=== PATIENT | male | born 1965 | race Caucasian/White ===

== ENCOUNTER → 2018-03-28 | Outpatient (CLI) | payer BC | END | disposition home or self-care (01) | LOC: LAB 16:20 | DX: E11.9 Type 2 diabetes mellitus without complications (principal) ==

== ENCOUNTER → 2019-03-17 | Outpatient (CLI) | payer BC | END | disposition home or self-care (01) | LOC: LAB 09:51 | DX: E11.9 Type 2 diabetes mellitus without complications (principal); R53.83 Other fatigue; R79.89 Other specified abnormal findings of blood chemistry ==

== ENCOUNTER → 2020-03-19 | Outpatient (CLI) | payer BC | END | disposition home or self-care (01) | LOC: LAB 17:26 | PROVIDERS: ATTEND Family Medicine | DX: E11.9 Type 2 diabetes mellitus without complications (principal) ==

== ENCOUNTER → 2021-04-18 | Outpatient (CLI) | payer BC | END | disposition home or self-care (01) | LOC: LAB 09:42 | PROVIDERS: ATTEND Family Medicine | DX: R79.89 Other specified abnormal findings of blood chemistry (principal); R53.83 Other fatigue; E78.5 Hyperlipidemia, unspecified; R74.8 Abnormal levels of other serum enzymes ==

== ENCOUNTER → 2022-04-13 | Outpatient (CLI) | payer SELFPAY | END | disposition home or self-care (01) | LOC: LAB 10:16 | PROVIDERS: ATTEND Family Medicine | DX: E11.9 Type 2 diabetes mellitus without complications (principal) ==